=== PATIENT | male | born 1965 | race Caucasian/White ===

== ENCOUNTER 2022-11-08 10:11 | Observation (INO) ==
[2022-11-08 10:45] LABS: Basophils # 0.1 10*3/uL (0.0-0.2); Basophils % 1.1 % (0.0-0.8); Eosinophils # 0.2 10*3/uL (0.0-0.87); Eosinophils % 4.5 % (0.00-10.9); Hematocrit 51.8 VOL% (42.0-52.0); Hemoglobin 16.7 GM/DL (14.0-18.0); Immature Granulocytes % 0.4 %; Immature Granulocytes Absolute 0.02 #; Lymphocytes # 1.3 10*3/uL (1.4-4.0); Lymphocytes % 25.3 % (21.2-54.2); Mean Corpuscular HGB Conc 32.2 GM/DL (32-36); Mean Corpuscular Volume 84.8 FL (87-102); Mean Platelet Volume 11.4 FL (9.6-12.0); Monocytes # 0.3 10*3/uL (0.11-0.8); Monocytes % 5.7 % (1.7-12.7); Platelet Count 235 T/CUMM (130-400); Red Blood Count 6.11 MC/CUMM (3.8-5.5); White Blood Count 5.3 T/CUMM (4-12)
[2022-11-08] MEDS ORDERED: diphenhydrAMINE 50 MG/1 ML VIAL IV ONE (10:56)
[2022-11-08] MEDS ORDERED: FAMOTIDINE 20 MG/2 ML VIAL IV ONE ×2 (10:56→11:50)
[2022-11-08] MEDS ORDERED: methylPREDNISolone SOD SUC 125 MG/2 ML VIAL IV ONE (10:56)
[2022-11-08] MEDS ORDERED: ASPIRIN 325 MG TABLET PO ONE (11:00)
[2022-11-08] MEDS ORDERED: DIAZEPAM 5 MG TABLET PO ONE (11:00)
[2022-11-08] MEDS ORDERED: diphenhydrAMINE CAP 50 MG CAPSULE PO ONE (11:00)
[2022-11-08 11:02] LABS: Calcium 9.8 MG/DL (8.5-10.1); Osmolality,Calculated 284.7 MOS/KG (273-304); Potassium 4.2 MMOL/L (3.5-5.1)
[2022-11-08] MEDS ORDERED: DIAZEPAM 5 MG TABLET ONE (11:46)
[2022-11-08] MEDS ORDERED: diphenhydrAMINE 50 MG/1 ML VIAL ONE (11:47)
[2022-11-08] MEDS ORDERED: methylPREDNISolone SOD SUC 125 MG/2 ML VIAL ONE (11:47)
[2022-11-08] MEDS ORDERED: ASPIRIN 325 MG TABLET ONE (11:47)
[2022-11-08] MEDS ORDERED: diphenhydrAMINE CAP 50 MG CAPSULE ONE (11:49)
[2022-11-08] MEDS ORDERED: NITROGLYCERIN DRIP 50 MG/250 ML BOTTLE IV ONE (11:58)
[2022-11-08] MEDS ORDERED: HEPARIN/NACL 0.9% 2 UNITS/ML 2,000 UNIT/1,000 ML BAG IV ONE (11:58)
[2022-11-08] MEDS ORDERED: VERAPAMIL 5 MG/2 ML VIAL ONE (11:58)
[2022-11-08] MEDS: SODIUM CHLORIDE 0.9% 1,000 ML IV SCH (12:00)
[2022-11-08] MEDS ORDERED: MIDAZOLAM 2 MG/2 ML VIAL ONE ×2 (12:46→12:58)
[2022-11-08] MEDS ORDERED: fentaNYL 100 MCG/2 ML VIAL ONE (12:47)
[2022-11-08] MEDS ORDERED: ENOXAPARIN 60 MG/0.6 ML SYRINGE ONE (13:04)
[2022-11-08] MEDS ORDERED: ONDANSETRON 4 MG/2 ML VIAL IV PRN (13:16)
[2022-11-08] MEDS ORDERED: ACETAMINOPHEN 325 MG TABLET PO PRN (13:16)
[2022-11-08] MEDS: carvediloL 3.125 MG TABLET PO SCH (21:34)
[2022-11-09] MEDS: SODIUM CHLORIDE 0.9% 1,000 ML IV SCH (00:16)
[2022-11-09 05:41] LABS: Basophils % 0.1 % (0.0-0.8); Hematocrit 43.2 VOL% (42.0-52.0); Hemoglobin 14.4 GM/DL (14.0-18.0); Immature Granulocytes % 0.4 %; Immature Granulocytes Absolute 0.04 #; Lymphocytes # 0.9 10*3/uL (1.4-4.0); Lymphocytes % 8.5 % (21.2-54.2); Mean Corpuscular HGB Conc 33.3 GM/DL (32-36); Mean Corpuscular Volume 84.2 FL (87-102); Mean Platelet Volume 11.9 FL (9.6-12.0); Monocytes # 0.5 10*3/uL (0.11-0.8); Monocytes % 4.9 % (1.7-12.7); Neutrophils % 86.1 % (38.7-73.9); Platelet Count 215 T/CUMM (130-400); Red Blood Count 5.13 MC/CUMM (3.8-5.5); Red Cell Distribution Width 12.8 % (9.3-17.3); White Blood Count 10.2 T/CUMM (4-12)
[2022-11-09 06:00] LABS: Osmolality,Calculated 289.7 MOS/KG (273-304); Potassium 4.4 MMOL/L (3.5-5.1)
[2022-11-09] MEDS: carvediloL 3.125 MG TABLET PO SCH (08:25)
[2022-11-09] MEDS ORDERED: LOSARTAN 50 MG TABLET PO SCH (09:00)
[2022-11-09] MEDS ORDERED: SPIRONOLACTONE 25 MG TABLET PO SCH (09:00)
[2022-11-09] MEDS ORDERED: DAPAGLIFLOZIN 10 MG TABLET PO SCH (09:00)
[2022-11-09] MEDS ORDERED: ASPIRIN EC 81 MG TABLET PO SCH (09:00)
[2022-11-09 12:16] VITALS: BP 98/58
[2022-11-10] MEDS ORDERED: SACUBITRIL/VALSARTAN 49-51 MG TABLET PO SCH (09:00)
== END 2022-11-09 14:58 | disposition home or self-care (01) ==
LOC: N.CL 10:11 → N.2W 10:11 → N.CL 10:21
PROVIDERS: ADMIT Internal Medicine Cardiovascular Disease; ATTEND Internal Medicine Cardiovascular Disease